=== PATIENT | female | born 1960 | race Caucasian/White ===

== ENCOUNTER 2016-12-27 07:08 | Day surgery (SDC) | payer BC ==
[~2016-12-27] VITALS: Ht 165.1 cm; Wt 63.0 kg
[2016-12-27] MEDS ORDERED: ALENDRONATE SOD70 MG PO (07:52)
[2016-12-27] MEDS ORDERED: HYDROCODONE-APA1 TAB PO (07:52)
[2016-12-27] MEDS ORDERED: OMEPRAZOLE20 M1 PO (07:53)
[2016-12-27] MEDS ORDERED: CYCLOBENZAPRINE10 MG PO (07:54)
[2016-12-27 07:55] VITALS: BP 132/85; Ht 165.1 cm; Wt 63.0 kg
[2016-12-27 08:28] LABS: HEMATOCRIT 40.2 % (36.0-48.0); HEMOGLOBIN 13.1 g/dL (12-16); MCHC 32.6 g/dL (31.0-37.0); MCV 92.2 fL (80.0-100.0); RBC 4.36 10x6/uL (4.00-5.40); RDW 12.4 % (11.5-14.5); WBC 4.3 10x3/uL (4.8-10.8)
--- NOTE | 2016-12-27 13:58 | NUR ---
1115 IV DC WITH CATHER TIP INTACT
--- NOTE | 2016-12-31 10:28 | OP ---
PATIENT NAME: ELLE AYALA MEDICAL RECORD: [id number] :56 [facility] DATE: SURGEON: KATYA CHAVEZ MD DATE OF OPERATION: 12/27/2016 PREOPERATIVE DIAGNOSIS: Right hip pain/degenerative joint disease. POSTOPERATIVE DIAGNOSIS: Right hip pain/degenerative joint disease. PROCEDURE PERFORMED: Right hip injection under fluoroscopy. SURGEON: Eric Chavez MD. ANESTHESIA: TIVA. CONDITION: She tolerated the procedure well, was transferred to the recovery room in stable condition. INDICATIONS: This is a 56-year-old female who has been having increasing hip pain. This has gotten to the juncture were it is no longer tolerable, although she does not want surgery. We discussed the options. She wanted to go ahead and try an injection to see what kind of relief she got. We discussed risks, benefits, and alternatives. She understood and wished to proceed. OPERATIVE REPORT: The patient was taken to the operating room and placed in supine position. TIVA anesthesia was obtained. The right hip was prepped under fluoroscopy. Her right hip was injected with IVP dye. Once it was notably within the hip, I then injected her with 2 cc of Kenalog and 4 cc of Marcaine plain. Once this was accomplished, she was awakened and transferred back to the outpatient surgery area in stable condition, having tolerated the procedure well. 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
== END 2016-12-27 11:25 | disposition home or self-care (01) ==
LOC: D.OPS 07:08 → D.PAN 09:30 → D.OPS 11:25
PROVIDERS: Anesthesiology
DX: M16.11 Unilateral primary osteoarthritis, right hip (principal); M25.551 Pain in right hip

== ENCOUNTER → 2018-09-16 19:25 | Outpatient (CLI) | payer BC ==
[2016-12-27 07:55] VITALS: BMI 21.6
[~2018-09-16 19:25] MED LIST: ALENDRONATE SOD70 MG PO; CYCLOBENZAPRINE10 MG PO; HYDROCODONE-APA1 TAB PO; OMEPRAZOLE20 M1 PO
== END | disposition home or self-care (01) ==
LOC: D.MAMMO 16:15
DX: Z12.31 Encounter for screening mammogram for malignant neoplasm of breast (principal)